=== PATIENT | male | born 1965 | race Caucasian/White ===

== ENCOUNTER 2018-03-08 12:43 | Inpatient (IN) | payer SELFPAY ==
[2018-03-08 13:22] LABS: Hemoglobin 15.4 g/dL (14.0-18.0); Mean Corpuscular HGB CONC 34.2 g/dL (32.0-36.0); Mean Corpuscular Hemoglobin 32.7 pg (27.0-31.0); Mean Corpuscular Volume 95.7 fl (80.0-94.0); Mean Platelet Volume 7.9 fL (7.4-10.4); Platelet Count 202 thou/uL (130-400); RBC Distribution Width 12.4 % (11.5-14.5); White Blood Cell (WBC) Count 20.5 thou/uL (4.8-10.8)
[2018-03-08] MEDS ORDERED: Ondansetron ODT 8 MG TAB ONE (13:38)
[2018-03-08 13:39] LABS: Band 3 % (5-11); Lymphocytes 13 % (21-51); MDiff Complete? YES; Monocytes 8 % (0-10); Neutrophil 76 % (42-75); PLT Morphology Comment Appears Adequate; RBC Morphology Normal
[2018-03-08 13:43] LABS: ALT (SGPT) 15 U/L (8-55); AST (SGOT) 20 U/L (5-34); Alkaline Phosphatase 78 U/L (40-150); Anion Gap 17 mmol/L (10-20); BUN (Urea Nitrogen) 18 mg/dL (8.4-25.7); Bilirubin, Total 1.1 mg/dL (0.2-1.2); Calc. Creatinine Clearance 0 mL/min (70-130); Calcium 9.5 mg/dL (7.8-10.44); Carbon Dioxide 24 mmol/L (22-29); Chloride 100 mmol/L (98-107); Estimated GFR-MDRD 58; Globulin 4.9 g/dL (2.4-3.5); Glucose 115 mg/dL (70-105); Lipase 22 U/L (8-78); Potassium 4.5 mmol/L (3.5-5.1); Protein, Total 8.9 g/dL (6.0-8.3); Sodium 136 mmol/L (136-145)
[2018-03-08 14:21] LABS: Bilirubin Negative (Negative); Blood, Urine Moderate (Negative); Clarity CLOUDY (Clear); Glucose, Urine (Dipstick) Negative (Negative); Leukocyte Large (Negative); Nitrite Positive (Negative); Protein, Urine (Dipstick) Trace mg/dL (Neg-Trace); Specific Gravity, Urine 1.006 (1.002-1.036); Urobilinogen 0.2 mg/dL (0.2-1.0)
[2018-03-08 14:22] LABS: Bacteria/HPF 3+ HPF (None Seen); Hyaline Casts/LPF 4-6 HYALINE CAST LPF (0-3 Hyaline); Pathc Cast-AUWi Flag 1.01 (0-2.49); RBC/HPF 0-3 HPF (0-3); Squamous Epithelial None Seen HPF (0-3); Yeast-AUWi Flag 18.7 (0-25.0)
--- NOTE | 2018-03-08 15:12 | RAD ---
FRONTAL RADIOGRPAH CHEST: DATE: 03/08/18. COMPARISON: None. HISTORY: Abdominal pain. FINDINGS: Lungs are clear. Heart and mediastinal contours appear grossly unremarkable. There is an oblong calcific structure measuring 3.1 x 0.4 cm in the right paratracheal region which c ould be related to calcified node, thyroid gland, or soft tissue density. IMPRESSION: No evidence for acute cardiopulmonary disease. A 3.1 x 1.5 cm structure of calcific density along th e superior mediastinum and the right paratracheal region, etiology uncertain. This could be definiti vely assessed with followup nonemergent CT examination. POS: [facility]
[2018-03-08] MEDS ORDERED: cefTRIAXone\\ROCEPHIN 2 GM VIAL ONE (15:49)
[2018-03-08] MEDS ORDERED: Ketorolac Tromethamine 30 MG/ML VIAL ONE (15:49)
[2018-03-08] MEDS ORDERED: Morphine 10 MG/ML VIAL ONE (15:49)
[2018-03-08] MEDS ORDERED: Glycopyrrolate 0.2 MG/ML 5 ML SYRINGE ONE (16:09)
[2018-03-08] MEDS ORDERED: Lidocaine 1% PF 5 ML VIAL ONE (16:09)
[2018-03-08] MEDS ORDERED: PROPOFOL 200 MG/20 ML VIAL ONE (16:09)
[2018-03-08] MEDS ORDERED: Labetalol 100 MG/20 ML MDV ONE (16:09)
[2018-03-08] MEDS ORDERED: Dexamethasone 20 MG/5 ML VIAL ONE (16:09)
[2018-03-08] MEDS ORDERED: Ondansetron HCl/PF 4 MG/2 ML Vial ONE (16:09)
--- NOTE | 2018-03-08 16:11 | CT ---
CT ABDOMEN AND PELVIS WITHOUT IV CONTRAST: INDICATIONS: Right flank pain. UTI. Nausea and vomiting. COMPARISON: No comparison studies available. TECHNIQUE: Multiple axial tomograms obtained through the abdomen and pelvis without IV enhancement. FINDINGS: The lung bases are clear. The liver, spleen, and pancreas are unremarkable for an unenhanced study. There is radiopaque materi al within the gastric lumen, consistent with ingested material. There is a 2 cm calculus in the right renal pelvis, which appears to be obstructing the right UPJ wit h mild right hydronephrosis. A second smaller calculus in the lower pole collecting structures of th e right kidney, measuring approximately 1 cm. A cyst in the peripheral right renal cortex measuring 2 cm. A large staghorn calculus is seen, filling the left renal pelvis and extending into the mid and lower pole collecting structures of the left kidney. A separate calcification in the peripheral mid colle cting structures of the left kidney, measuring 1 cm. The large staghorn calculus fills the left joe l pelvis and may be obstructing the left UPJ. There is dilatation of the upper pole collecting struc tures on the left. Small bowel loops are of normal caliber. The appendix appears normal. The colon is unremarkable. The urinary bladder is distended. The prostate shows small calcifications without significant enlarg ement. The aorta is calcified but of normal caliber. Nonspecific lymph nodes are seen in the periao rtic regions. Numerous small lymph nodes are present, measuring up to 1.5 cm. A pre-crural lymph no de in the upper abdomen measures up to 1.5 cm. IMPRESSION: 1. Large bilateral staghorn type calculi in the renal pelvis of both kidneys, larger on the left. T here is evidence of obstruction of both ureteropelvic junctions with dilatation of the left upper col lecting structures and mild right hydronephrosis. Other renal calculi, as described. 2. A right cortical renal cyst is apparent. 3. Mild urinary bladder distention. 4. Nonspecific retroperitoneal adenopathy. POS: [facility]
[2018-03-08] MEDS ORDERED: Iothalamate Meglumine 60% 50 ML VIAL FS ONE (16:25)
[2018-03-08] MEDS ORDERED: B & O ONE (16:26)
[2018-03-08] MEDS ORDERED: Fentanyl 100 MCG/2 ML VIAL ONE ×4 (16:33→19:19)
[2018-03-08] MEDS ORDERED: Midazolam HCl 2 mg/2 ml Vial ONE (17:04)
[2018-03-08 17:16] LABS: INR-International Normal Ratio 1.1; Prothrombin Time 14.7 SEC (12.0-14.7)
[2018-03-08 17:17] LABS: PTT 32.5 SEC (22.9-36.1)
[2018-03-08 18:03] LABS: HBCM Index 0.24 S/CO (0-0.79); HBSAg Index 0.25 S/CO (0-0.99); HIV (1/2) Antibody/Antigen Non-Reactive (NonReactive); HIV 1/2 INDEX 0.09 S/CO (<1.00); Hep A IgM AB Non-Reactive (NonReactive); Hep B Surf Ag Non-Reactive S/CO (NonReactive); Hepatitis B Core IGM Abs Non-Reactive (NonReactive)
[2018-03-08] MEDS ORDERED: diphenhydrAMINE 50 MG/ML VIAL IVP PRN (18:29)
[2018-03-08] MEDS ORDERED: HYDROcodone/Acetaminophen 10/325 mg Tablet PO PRN (18:29)
[2018-03-08] MEDS ORDERED: Oxybutynin 5 MG TAB PO PRN (18:29)
[2018-03-08] MEDS ORDERED: Morphine 4 MG/ML Carpuject IVP PRN (18:29)
[2018-03-08] MEDS ORDERED: Ondansetron HCl/PF 4 MG/2 ML Vial IVP PRN ×2 (18:29→18:35)
[2018-03-08] MEDS ORDERED: Mag-Al 1200 mg/1200 mg/30 ML UDCUP PO PRN (18:29)
--- NOTE | 2018-03-08 18:29 | RAD ---
RETROGRADE IVP 03/08/18 HISTORY: Bilateral ureteral stents. FINDINGS: Intraprocedural fluoroscopy was provided. A total of eight images are submitted for interpretation. There is evidence of retrograde opacification of the left and right intra and extrarenal collecting s ystem. Bilateral ureteral stents are identified. IMPRESSION: Fluoroscopy as above. POS: [facility]
[2018-03-08] MEDS ORDERED: Labetalol HCl 100 MG/20 ML VIAL ONE (18:33)
[2018-03-08] MEDS ORDERED: Meperidine HCl/PF 25 MG/ML VIAL SLOW IVP PRN (18:35)
[2018-03-08] MEDS ORDERED: Promethazine HCl 25 MG/ML VIAL SLOW IVP PRN (18:35)
[2018-03-08] MEDS ORDERED: Promethazine HCl 25 MG/ML VIAL IM PRN (18:35)
[2018-03-08 19:00] LABS: Hep C IgG Ab Reflex HepC Qnt (NonReactive)
[2018-03-08 19:06] LABS: Hep C Index 16.85 S/CO (0-0.79)
[2018-03-08] MEDS: Sodium Chloride 0.9% 1,000 ML IV SCH (20:14)
[2018-03-08] MEDS ORDERED: Fentanyl 100 MCG/2 ML VIAL SLOW IVP SCH (20:30)
--- NOTE | 2018-03-08 21:20 | CON ---
DATE OF CONSULTATION: 03/08/2018 REASON FOR CONSULT: Right flank pain, bilateral renal lithiasis. HISTORY OF PRESENT ILLNESS: Mr. Cesar is a 52-year-old male with history of tobacco abuse, who presented to the emergency room with 3-4 day history of right flank pain, vague lower abdominal discomfort with nausea, vomiting, subjective history of fever and chills. CT of the abdomen and pelvis demonstrated large bilateral renal calculi, right 2 cm renal stone with mild hydro, left staghorn calculus, with dilation of the left upper pole. The patient denies prior history of kidney stones, denies history of gross hematuria , history of STDs. The patient has multiple body tattoos and denies history of hepatitis, HIV. Works as a lead painter. He is single, lives in a private residence. He states that he was feeling well. However, due to worsening abdominal discomfort with nausea and emesis, presented to the emergency room. His CBC demonstrates white count of 20,000 renal function, creatinine of 1.2. His urine is grossly infected with nitrite positive urine. He is hemodynamically stable. Patient, however, has persistent discomfort despite providing about 10 mg of morphine, 8 of Zofran and 30 of Toradol. Most of his discomfort is on the right. PAST MEDICAL HISTORY: None. PAST SURGICAL HISTORY: Right toe surgery. ALLERGIES: No known drug allergies. SOCIAL HISTORY: Works as a lead painter, single, history of tobacco abuse 1 pack of cigarettes 3-4 days. Occasional alcohol, denies illicit drug use. Remote history of marijuana abuse. PHYSICAL EXAMINATION: VITAL SIGNS: Stable at 161/98, 55, 22, 99%, 98.9. GENERAL: Patient does appear to be uncomfortable due to right flank pain. HEENT: Grossly unremarkable; however, poor dentition. GENERAL: He has multiple body tattoos of his right bilateral upper extremities and back. ABDOMEN: Soft, he does have right CVA tenderness, left is grossly unremarkable. No rigidity, no rebound, per se. GENITOURINARY: Demonstrates circumcised phallus, his meatus caliber is somewhat small, approximately 10-12 Urdu. Testes are descended with no evidence of intratesticular mass. RECTAL: Digital rectal exam currently deferred as he does have discomfort from the right side. Also, blood cultures are currently being drawn. EXTREMITIES: No cyanosis, clubbing or edema. PERTINENT LABORATORY DATA AND IMAGING DATA: 1. White count of 20,000, hemoglobin 15, platelets 202, 76 segs, BUN 18, creatinine 1.2. Urinalysis demonstrates nitrite positive urine, large leukocytes, 0-3 RBCs, greater than 50 WBCs, no epithelials, 3+ bacteria. Urine culture and blood culture is pending. 2. Calcium is normal with normal parameters. Urine pH is 7.0. 3. CT of the abdomen and pelvis, 2 cm right renal pelvic stone, with mild right hydronephrosis. Second stone in the right lower pole measuring 1 cm, right peripheral renal cyst measuring 2 cm. Hounsfield unit of the stone is approximately 770. On the left side, there is a left staghorn extending from the renal pelvis involving mid to lower pole rhiannon. In largest dimension per my review, measures 6.1 x 3 cm. There is a second nidus stone, left mid pole 1 cm. Hounsfield unit is approximately 500. Per my review, CT prostate volume is approximately 30 grams, mild bladder distention. Numerous small lymph nodes measuring up to 1.5 cm in the precrural periaortic region. 4. Chest x-ray demonstrates 3.1 x 1.5 cm calcific density along the superior mediastinum of the right peritracheal region. Etiology unknown. Recommend CT. IMPRESSION AND PLAN: 1. Mr. Cesar is a 52-year-old male who presented to the emergency room with right flank pain greater than left, leukocytosis with bilateral renal calculi burden as above. Given there is grossly infected urine with leukocytosis, recommend cystoscopy, bilateral stent. patient has been fully informed regarding importance of follow up with Urology as he would require multiple urologic interventions given large stone burden including left staghorn : 2. History of tobacco abuse. 3. Abnormal chest x-ray. Recommend Pulmonology consult and evaluation. 4. Hypertension, may be related to pain issues, as he has an abnormal EKG, it would be prudent to obtain a Cardiology evaluation as this patient has never seen a primary care doctor as occult medical coronary artery disease, pulmonary pathology cannot be excluded. The patient to OR for bilateral stents. Percutaneous nephrostomy tube is indicated if unable to stent. Broad spectrum antibiotics of Rocephin and Levaquin have been provided by the emergency room. GUTIERREZ
[2018-03-08 21:23] VITALS: BMI 24.2
[2018-03-08] MEDS: Docusate 100 MG CAP PO SCH (21:37)
--- NOTE | 2018-03-08 23:53 | OP ---
DATE OF PROCEDURE: 03/08/2018 PREOPERATIVE DIAGNOSES: 1. Bilateral renal calculi: Right renal pelvic 2 cm with mild hydro, right lower pole 9-10 mm; left staghorn calculi, largest dimension measuring 6.1 cm x 3 cm in left mid pole, 1 cm stone. 2. Meatal stenosis. 3. Leukocytosis. 4. History of tobacco abuse. 5. Abnormal electrocardiogram. 6. Chest x-ray demonstrating possible mediastinal mass. POSTOPERATIVE DIAGNOSES: 1. Bilateral renal calculi: Right renal pelvic 2 cm with mild hydro, right lower pole 9-10 mm; left staghorn calculi, largest dimension measuring 6.1 cm x 3 cm in left mid pole, 1 cm stone. 2. Meatal stenosis. 3. Leukocytosis. 4. History of tobacco abuse. 5. Abnormal electrocardiogram. 6. Chest x-ray demonstrating possible mediastinal mass. PROCEDURES PERFORMED: Cystoscopy; bilateral retrograde; 6 x 24 double-J ureteral stent placement; meatal calibration and dilatation, calibrated to 12- Grenadian, dilated to 28-Grenadian; Clancy catheter placement 18-Grenadian, 10 mL. COMPLICATIONS: None apparent. INTRAOPERATIVE FINDINGS: 1. Meatal stenosis calibrated and dilatated. 2. Mild BPH component. 3. Bladder grossly unremarkable. 4. Mild bilateral hydronephrosis due to large renal calculi. INDICATIONS FOR THE PROCEDURE AND HISTORY: Mr. Cesar is a 52-year-old male with no primary care, denied past medical history, with history of tobacco abuse. He presented with 3 to 4-day history of nausea, vomiting, right greater than left flank pain. He was found to have leukocytosis of 20, 000. Urinalysis is grossly positive for UTI component. He has been provided Levaquin and Rocephin, presents for cystoscopy and bilateral stent placement due to presenting UTI with large stone burden. Risks and complications of the procedure were reviewed with him in detail including, but not limited to bleeding, pain, infection, injury to adjacent organs, urosepsis. All questions were answered to his satisfaction and he desired to proceed. DESCRIPTION OF THE PROCEDURE: After an informed consent was signed, the patient was taken to the operating room, placed in a dorsal lithotomy position with the genital area prepped and draped in the usual surgical sterile fashion. A 21-Grenadian cystoscope was utilized for the procedure. Prior to passing the scope, as he does demonstrate incidental meatal stenosis, this was calibrated to 12-Grenadian, dilated to 28-Grenadian with ease. Subsequently, a 21-Grenadian cystoscope was passed without difficulty with no evidence of urethral stricture. Prostatic urethra demonstrated bilateral coapting lateral lobes with mild BPH component. Bladder was entered demonstrating moderate debris, consistent with UTI. There was no evidence of bladder stones, diverticulum, or masses appreciated. The UO was identified in normal anatomical location. A 5- Grenadian open-ended catheter was utilized to intubate the right UO. We passed this to the level of the stone; however, there was some difficulty passing a wire to the level of the UPJ. Therefore, a retrograde pyelogram gently was performed with 1:1 diluted contrast. This opacified the collecting system with large right renal pelvic stone with mild hydro. A 0.35 sensor wire was passed to the right lower pole. A 6 x 24 double-J ureteral stent was passed without difficulty. Moderate debris was noted with efflux. We then subsequently passed a left open-ended catheter, 5-Grenadian, to the level of the renal pelvis. There was some difficulty passing at the level of UPJ as there was a stone component extending from the renal pelvis to the proximal ureter, UPJ junction. Gentle retrograde pyelogram again was performed opacifying the collecting system. A 0.35 sensor wire was placed to the left mid pole and a 6 x 24 double- J ureteral stent was passed. The left collecting system also demonstrated some degree of hydronephrosis as well. At this time, an 18-Grenadian 10 mL Clancy catheter was passed. The patient will need to be monitored for decompensation, as he presents with significant leukocytosis. He does have an abnormal EKG preop, and a possible chest mass on chest x-ray. Would advise regarding Pulmonary consultation. CT of the abdomen and pelvis incidentally does note nonspecific lymph nodes in the periaortic region, which is nonspecific. The patient does have history of tobacco abuse. He denies having past medical history; however, has never seen a primary care provider. Occult medical pathology needs to be evaluated. The patient will require medical clearance to proceed with subsequent urologic surgery, as he has a large stone burden bilaterally. Recommend broad-spectrum antibiotics until final urine culture is finalized. GUTIERREZ
--- NOTE | 2018-03-09 00:24 | HP ---
The patient currently does not have a primary care physician. CHIEF COMPLAINT: Abdominal pain, nausea, and vomiting. HISTORY OF PRESENT ILLNESS: Mr. Cesar is a pleasant 52-year-old gentleman who has no known past me dical history. He was in his usual state of health until Wednesday afternoon. He says that he had eate n some pork and basically says later on that evening, he began feeling sick and the following day on Wednesday, he felt drowsy all day and started getting abdominal pain as well as nausea and vomiting. He says he vomited multiple times and he could not even keep water down. He also was having subjecti ve fever off and on and began having again the pain on the right side. He denies any dysuria or any hematuria. He came to the emergency room for evaluation and there was found that he had multiple sto cosme in the kidneys and there were bilateral large staghorn type calculi in the renal pelvis of both k idneys. It was larger on the left. There was evidence of obstruction at both of the ureteropelvic j unction with dilatation of the left upper collecting structures and mild right hydronephrosis. As a result, Urology was consulted and the patient was taken emergently to surgery and we have been asked to help to admit the patient with regard to some of his other medical conditions. He was also found to have a 3.1 x 1.5-cm mass in the right superior mediastinum and in the right peritracheal region. He will need evaluation for this as well. REVIEW OF SYSTEMS: Constitutional: There has been subjective fever as well as chills. No night swe ats. He has had a 5-pound weight loss. He says after having this most recent illness, prior to that there was no weight loss. HEENT: No headache, no dizziness, no visual changes, no sore throat, rhi norrhea, neck pain, no adenopathy. Pulmonary: No hemoptysis, no cough, no wheezing. Cardiovascular : He denies any chest pain, no shortness of breath, no PND, no orthopnea. He says he has good exerc ise tolerance and is able to walk several flights of steps without any difficulty. Gastrointestinal: He did have some right flank pain as well as nausea and vomiting as previously mentioned, but no ch car in bowels. Genitourinary: No urinary frequency, dysuria, or hematuria. Musculoskeletal: No m uscle pains, weakness, or joint pains. Neurologic: No focal weakness, numbness, no seizures. Psych iatric: No symptoms of anxiety or depression. Skin and Integument: No skin changes. No rash. PAST MEDICAL HISTORY: No history of any previous past medical history. PAST SURGICAL HISTORY: Negative. ALLERGIES: No known drug allergies. SOCIAL HISTORY: He smokes 2-3 cigarettes daily as well as 2-3 beers a day. He used to be a heavy sm oker and smoked about 2-1/2 packs of cigarettes for at least 7 years. He is single, has one child. He is a [employer]. FAMILY HISTORY: Significant for cancer in his father, leukemia and also breast cancer. MEDICATIONS: Prior to admission included aspirin. PHYSICAL EXAMINATION: GENERAL: He is alert and oriented. He appears to be in no acute distress. VITAL SIGNS: Blood pressure was 153/90, heart rate 69, respiratory rate of 16, and he is afebrile. HEENT: Pupils are equal, round, and reactive. Extraocular muscles are intact. Sclerae are anicteri c. Throat: No erythema, no exudates. NECK: No adenopathy, no bruits. LUNGS: Clear to auscultation. There is no wheezing, no rales. CARDIOVASCULAR: He has a normal S1 and S2. No S3 or S4. No murmurs, clicks, or rubs. ABDOMEN: Soft. He has got some mild right-sided tenderness. There is no rebound or guarding. EXTREMITIES: There is no clubbing, cyanosis, no edema. NEUROLOGICALLY: The exam is grossly nonfocal. LABORATORY RESULTS: Sodium 136, potassium 4.5, chloride is 100, CO2 is 24, BUN of 18, creatinine 1.2 9, glucose is 115. White blood cell count 20.5, hemoglobin 15.4, hematocrit is 45, platelet count is 202,000. INR is 1.1. Urinalysis is positive nitrites, moderate blood, large leukocyte esterase, an d 3+ bacteria. ASSESSMENT AND PLAN: 1. Nephrolithiasis with staghorn calculus and urinary obstruction. He will be admitted to the medic al floor, started on empiric IV antibiotics for a complicated urinary tract infection secondary to th e nephrolithiasis. He has already been seen by Dr. Winston and has had surgical procedure to rel ieve the obstruction and may require more definitive surgery at a later date. 2. Pulmonary mass. The mass according to the findings on the chest x-ray in the superior mediastinu m and also in the peritracheal area. We will likely need to get a CT scan to get a better idea of wh ere the mass is located as this will determine whether he needs to be seen by Pulmonary or by thoraci c surgery if it is a mediastinal mass. 3. He has sinus bradycardia, however, he does not appear to be symptomatic from this. We will rickey liae likely monitor him on telemetry and get an echocardiogram and further recommendations will be bas ed on the patient's clinical course.
[2018-03-09] MEDS: HYDROcodone/Acetaminophen 10/325 mg Tablet PO PRN ×4 (02:55→17:33)
[2018-03-09] MEDS ORDERED: Morphine 4 MG/ML VIAL IV PRN (05:10)
[2018-03-09] MEDS: Morphine 4 MG/ML VIAL IV PRN ×3 (05:17→22:59)
[2018-03-09 05:48] LABS: #Lymphocytes 0.9 thou/uL (1.20-3.40); #Monocytes 0.8 thou/uL (0.11-0.59); #Neutrophils 11.9 thou/uL (1.40-6.50); %Eosinophils 0.2 % (0.0-10.0); %Lymphocytes 6.7 % (21.0-51.0); %Neutrophils 87.1 % (42.0-75.0); Hemoglobin 13.4 g/dL (14.0-18.0); Mean Corpuscular HGB CONC 33.4 g/dL (32.0-36.0); Mean Corpuscular Hemoglobin 32.4 pg (27.0-31.0); Mean Corpuscular Volume 96.9 fl (80.0-94.0); Platelet Count 181 thou/uL (130-400); RBC Distribution Width 12.5 % (11.5-14.5); Red Blood Cell (RBC) Count 4.15 mill/uL (4.70-6.10); White Blood Cell (WBC) Count 13.6 thou/uL (4.8-10.8)
[2018-03-09 06:04] LABS: Anion Gap 12 mmol/L (10-20); BUN (Urea Nitrogen) 18 mg/dL (8.4-25.7); Calc. Creatinine Clearance 83 mL/min (70-130); Calcium 8.1 mg/dL (7.8-10.44); Carbon Dioxide 23 mmol/L (22-29); Chloride 106 mmol/L (98-107); Estimated GFR-MDRD 79; Glucose 132 mg/dL (70-105); Potassium 4.1 mmol/L (3.5-5.1); Sodium 137 mmol/L (136-145)
[2018-03-09] MEDS: Sodium Chloride 0.9% 1,000 ML IV SCH ×3 (06:49→20:50)
[2018-03-09] MEDS: Docusate 100 MG CAP PO SCH ×2 (08:41→20:53)
[2018-03-09] MEDS: Tamsulosin HCl 0.4 MG CAP PO SCH (08:41)
--- NOTE | 2018-03-09 09:36 | PRG ---
DATE OF SERVICE: 03/09/2018 SUBJECTIVE: The patient is complaining of right lower quadrant abdominal discomfort. Denies nausea, vomiting or chills. PHYSICAL EXAMINATION: VITAL SIGNS: Stable at 97.7, heart rate 52-49, 98%, 186/96. I's and O's are 1950 of urine output, concentrated yellow. ABDOMEN: Soft. There is no gross CVA tenderness. GENITOURINARY: Clancy catheter is adequately secured. PERTINENT LABORATORY DATA: White count has improved from presenting 20,000 to 13,000, hemoglobin 13.4, platelet 181. Coagulation profile is within normal limits. Creatinine improved from 1.29-0.99. Urine culture preliminary is beta hemolytic strep. Blood culture negative thus far. Serology is hepatitis B, HIV negative; hepatitis C, reflex positive. IMPRESSION AND PLAN: A 52-year-old male who presented with flank pain, found to have a large stone burden bilaterally. CT demonstrated right 2 cm stone, right lower pole 1 cm stone, left staghorn calculus in greatest dimension measuring 6.1 cm, left mid pole 1 cm stone. The patient underwent cystoscopy, bilateral stent, meatal calibration and dilatation. 1. Chest x-ray demonstrates 3 cm mediastinal mass. 2. Screening on hepatitis panel C, positive. 2. Hypertension, bradycardia. patient has undergone bilateral stent. Recommend Levaquin until culture is finalized. He was informed regarding importance of follow up with as he has bilateral ureteral stent and very large stone burden that will require multiple surgeries ie percutaneous nephrolithotomy URS. He will need to be medically optimized, he has never seen a physician. I do anticipate some occult pathology as there is an abnormal chest x-ray, EKG and bradycardia. I appreciate hospitalist's assistance in medical optimization. CT of the chest has been ordered per Hospitalist, echocardiogram is pending. Recommend Infectious Disease consult due to hepatitis C, recently diagnosed. Case management consult advise that the patient is nonfunded and require multiple surgical interventions. GUTIERREZ
[2018-03-09] MEDS ORDERED: Iopamidol 370 76% 100 ML VIAL ONE (12:54)
--- NOTE | 2018-03-09 14:20 | CT ---
CT CHEST WITH IV CONTRAST: Date: 03/09/18 HISTORY: Abnormal chest radiograph. Mediastinal mass. COMPARISON: 03/09/18. FINDINGS: No calcification is apparent at the level of the upper mediastinum and region of concern on recent ch est radiograph. The building services supervisor view for the current exam does not show a density at the same location. There is mild scarring at the dependent portion of each lung. Calcification within the arterial struc tures. Nonspecific lymph nodes of mediastinum. Within the partially visualized upper abdomen, cirrhotic appearance of the liver, ureteral stent, and renal calcifications are partially visualized. IMPRESSION: 1. No mediastinal masses or other aggressive processes are apparent. The density on recent chest rad iograph is not reproduced and may have represented an overlying artifact. 2. Atherosclerosis. POS: [facility]
--- NOTE | 2018-03-09 14:29 | PDOC.PN ---
- Subjective Encounter Start Date: 03/09/18 Encounter Start Time: 14:26 Mr. Cesar was seen today in follow-up of Nephrolithiasis, mediastinal mass. He is complaining of severe pain in the right flank, which is not relieved with [place]. - Objective Resuscitation Status: Resuscitation Status FULL:Full Resuscitation MAR Reviewed: Yes Vital Signs & Weight: Vital Signs (12 hours) Temp Pulse Resp BP Pulse Ox 03/09/18 13:22 97.6 F 83 20 185/96 H 100 03/09/18 08:38 52 L 186/96 H 03/09/18 07:35 97.7 F 68 20 192/93 H 98 03/09/18 04:00 49 L 20 140/76 Weight Admit Weight 150 lb 3.2 oz Weight 150 lb 3.2 oz I&O: 03/08/18 03/09/18 03/10/18 06:59 06:59 06:59 Output Total 1400 Balance -1400 Result Diagrams: 03/09/18 05:03 03/09/18 05:03 Phys Exam - Physical Examination HEENT: PERRLA Respiratory: no wheezing, no rales, no rhonchi, clear to auscultation bilateral Cardiovascular: RRR, no significant murmur, no rub Gastrointestinal: soft, positive bowel sounds Musculoskeletal: no edema Dx/Plan (1) Staghorn calculus Code(s): N20.0 - CALCULUS OF KIDNEY Status: Acute (2) Bilateral nephrolithiasis Code(s): N20.0 - CALCULUS OF KIDNEY Status: Acute (3) Complicated UTI (urinary tract infection) Code(s): N39.0 - URINARY TRACT INFECTION, SITE NOT SPECIFIED Status: Acute (4) Mediastinal mass Status: Acute (5) Hepatitis C Code(s): B19.20 - UNSPECIFIED VIRAL HEPATITIS C WITHOUT HEPATIC COMA Status: Acute (6) Elevated blood-pressure reading without diagnosis of hypertension Code(s): R03.0 - ELEVATED BLOOD-PRESSURE READING, W/O DIAGNOSIS OF HTN Status : Acute - Plan * Nephrolithiasis- patient is status post Ureteral STENT placement * UTI- awaiting urine culture results, will continue Levaquin in the interim * Mediastinal Mass- await CT scan results for better characterization * Hepatitis C- work-up for treatment is underway by ID * Pain control- discussed with patient that we will try to limit IV morphine, and use as a last resort- will monitor over the next few days..
--- NOTE | 2018-03-09 15:33 | NM ---
DIURETIC RADIONUCLIDE RENOGRAM: Date: 03/09/18 HISTORY: Bilateral kidney stones with bilateral ureteral stents. RADIOPHARMACEUTICAL: 8 mCi technetium-99m MAG3 injected intravenously. DIURETIC: 34 mg IV Lasix injected 15 minutes prior to the radiopharmaceutical. FINDINGS: Correlation is made with the CT scan and retrograde pyelograms of 03/08/18. There is better flow to the right kidney compared to the left with better uptake as well. The differe ntial function measures 65% on the right and 35% on the left. Tracer excretion is seen bilaterally in to the urinary bladder. There is focal retention of contrast in the upper poles, left greater than ri ght. The renogram curves are downsloping. IMPRESSION: 1. No evidence of high grade obstruction. 2. Differential function is 65% on the right and 35% on the left. POS: [facility]
--- NOTE | 2018-03-09 19:30 | CON ---
DATE OF CONSULTATION: 03/09/2018 REASON FOR CONSULTATION: Positive hepatitis C serology. HISTORY OF PRESENT ILLNESS: A 52-year-old first admission to this hospital presents with no past med ical history and new onset of right lower quadrant abdominal pain, nausea, and vomiting. Evaluation demonstrated an obstructive nephrolithiasis with staghorn calculi in right and left side. Patient antonio d stents placed. He was found to have a positive HCV serology. Also, there was a 3.1 x 1.5 cm mass in the right superior mediastinum, right peritracheal region. Currently, he is feeling still quite a bit of pain in the right abdominal area. No headaches, visual symptoms, sore throat, odynophagia or dysphagia. No chest pain, no cough or sputum production. No joint symptoms. No neurological sympt oms. PAST MEDICAL HISTORY: Was not aware of any medical problems. PAST SURGICAL HISTORY: Negative. ALLERGIES: None. SOCIAL HISTORY: Works in ranches doing various functions, painting, carpentry and so on, still smoki ng. Drinks 2 to 3 beers a day. Used to smoke heavier. Has 1 child. Kind of lives in various areas , does not have fixed residence. Right now, he is working in a couple of ranches in the area. FAMILY HISTORY: Cancer, leukemia and breast cancer. CURRENT MEDICATIONS: Bassett, Maalox, Benadryl, Colace, levofloxacin, Zofran, oxybutynin, Flomax. PHYSICAL EXAMINATION: VITAL SIGNS: T-max 97.8, blood pressure 180/90, pulse 83, respirations 20, O2 sat 100%. SKIN: No remarkable findings. Peripheral IV access has indwelling Clancy catheter. No lymphadenopat hy. HEENT: Ocular movements are conjugate. Sclerae white. Oral cavity with only few remaining teeth wi th marked decay and gum disease. No thrush. NECK: Supple with jugular distention or carotid bruits. LUNGS: With symmetric clear breath sounds. HEART: S1, S2, regular rate. No S3 or S4. ABDOMEN: Soft and nondistended. Mild to moderate tenderness in right lower quadrant, no distention, no ascites noted. EXTREMITIES: Moves extremities equally. Pulses 1+ in dorsalis pedis. No edema. NEUROLOGIC: Cognitive function appears to be intact. Strength in upper and lower extremities are pr eserved. LABORATORY DATA: White cell count down from 20 to 13,000, hemoglobin 13.4, MCV 96, platelets 181 wit h 87% neutrophils. INR 1.1. Chemistry with glucose 115, total protein 8.9, globulin 4.9, albumin 4. 0. Urinalysis greater than 50 WBCs. Hepatitis C reflex positive. ASSESSMENT: Nephrolithiasis with bilateral obstructive, admitted with pain, mediastinal mass, positi ve hepatitis C serology. DISCUSSION: The patient needs further assessment of hepatitis C infection to see if it has spontaneo usly resolved or not with measurement of the hepatitis C virus RNA quantitation. The mediastinal mas s will continued to be evaluated. HIV serology was negative. If he turns out to have positive quant itative assay of hepatitis C in the blood, then we will be able to coordinate treatment for patient o nce he gets discharged in the outpatient setting. Through my clinic, we can obtain patient assistanc e for the treatment course. Check serum protein electrophoresis in view of the elevated total protei n.
[2018-03-09] MEDS ORDERED: Nicotine 7 MG PATCH TOP SCH (21:00)
[2018-03-10] MEDS: Morphine 4 MG/ML VIAL IV PRN (03:39)
[2018-03-10] MEDS: Sodium Chloride 0.9% 1,000 ML IV SCH ×2 (03:50→11:51)
[2018-03-10 04:18] LABS: #Eosinphils 0.1 thou/uL (0.0-0.7); #Lymphocytes 2.3 thou/uL (1.20-3.40); #Monocytes 1.2 thou/uL (0.11-0.59); #Neutrophils 7.8 thou/uL (1.40-6.50); %Basophils 0.2 % (0.0-1.0); %Eosinophils 0.5 % (0.0-10.0); %Lymphocytes 20.3 % (21.0-51.0); %Monocytes 10.8 % (0.0-10.0); %Neutrophils 68.2 % (42.0-75.0); Hemoglobin 13.2 g/dL (14.0-18.0); Mean Corpuscular HGB CONC 33.8 g/dL (32.0-36.0); Mean Corpuscular Hemoglobin 33.1 pg (27.0-31.0); Platelet Count 151 thou/uL (130-400); RBC Distribution Width 12.5 % (11.5-14.5); Red Blood Cell (RBC) Count 3.99 mill/uL (4.70-6.10); White Blood Cell (WBC) Count 11.4 thou/uL (4.8-10.8)
[2018-03-10 04:46] LABS: Cardiac Risk 2.1 (Less than 4.5)
[2018-03-10] MEDS: HYDROcodone/Acetaminophen 10/325 mg Tablet PO PRN ×2 (06:01→10:57)
[2018-03-10] MEDS ORDERED: traMADol HCl 50 MG TAB PO PRN (07:45)
[2018-03-10] MEDS: Tamsulosin HCl 0.4 MG CAP PO SCH (08:26)
[2018-03-10] MEDS: Docusate 100 MG CAP PO SCH (08:26)
--- NOTE | 2018-03-10 09:38 | PRG ---
DATE OF SERVICE: 03/10/2018 SUBJECTIVE: The patient does have right lower quadrant abdominal discomfort. Denies flank pain. Pain is controlled with hydrocodone and morphine. Denies nausea, vomiting or chills. OBJECTIVE: VITAL SIGNS: Stable. He is afebrile, however, remains hypertensive 178/87. I' s and O's are 3840 in, 4450 out of clear dilute urine. ABDOMEN: Soft, subjective discomfort is in the right lower quadrant; however, there is no rigidity, no rebound. No significant tenderness on physical examination. No CVA tenderness. GENITOURINARY: Vivas catheter secured demonstrating clear dilute urine. PERTINENT LABORATORY DATA: White count has decreased since admission from 20, 000 to 13,000, this morning it is 11,000 with hemoglobin 13, platelet 151. Blood culture is negative. Urine culture demonstrating beta strep. IMAGING: CT correlation of the chest mass negative for mediastinal mass. Echocardiogram is in chart. Lasix renal scan reviewed demonstrating no evidence of high-grade obstruction. I did discuss with the patient regarding differential function of diminished function of the left kidney at 35%, right 65 %. IMPRESSION AND PLAN: Mr. Cesar is a 52-year-old male admitted with history of right abdominal discomfort, found to have bilateral large stone burden including left staghorn, a large right renal calculi with hydronephrosis status post bilateral stent. As the patient is improving with stent, I would recommend Levaquin versus ciprofloxacin as an outpatient for minimum of 2 weeks. 1. Hepatitis C, newly diagnosed, appreciate Infectious Disease consult. 2. Hypertension. 3. History of tobacco abuse. I discussed with patient in lengthy detail, as I have been informed by hospital administration that we are unable to proceed with urologic surgical intervention due to patient being not a local [facility] resident. I did inform the patient that case management has been consulted to coordinate followup appointment with in [facility]. The patient has been fully informed regarding importance of follow up with Urology, as he already has diminished function of the left kidney. Discussed with patient regarding weaning pain medication. AIRAM vivas. Would recommend weaning morphine, may continue oral pain medication. Tramadol and Toradol has been added to his regimen. The patient states that he is anticipated to be back at home tomorrow and has private residence. Pending coordination of follow up subspecialist in [place], I do anticipate patient will be cleared to be discharged tomorrow. addendum: Patient ready for discharge as he is medically stable. Patient is no evidence of fever, leukocytosis is resolved voiding without significant issues. Patient has been provided a urology follow-up appointment in [place] with Dr. Stoner 03/16/18 @9;30am. Patient also has been informed that as he is a resident of [facility], alternative option if he needs emergent treatment may present to [facility] emergency room. I did speak with attending urologist at [facility] , DR Arcos who recommended if there is emergent issue this would be an option for him as an alternative. GUTIERREZ
[2018-03-10] MEDS ORDERED: Ketorolac Tromethamine 30 MG/ML VIAL IVP SCH (12:00)
--- NOTE | 2018-03-10 12:51 | DIS ---
DATE OF ADMISSION: 03/08/2018 DATE OF DISCHARGE: 03/10/2018 The patient does not have a primary care physician. DISCHARGE DISPOSITION: Home. PRIMARY DISCHARGE DIAGNOSES: 1. Nephrolithiasis, bilateral, with urinary obstruction. 2. Complicated urinary tract infection secondary to nephrolithiasis. 3. Hypertension. 4. Tobacco abuse. 5. Hepatitis C. DISCHARGE MEDICATIONS: Include ciprofloxacin 500 mg 1 p.o. twice a day for 2 weeks as well as amlodi pine 5 mg daily, Tylenol #4 one tablet q.4 hours as needed for pain. PROCEDURES DONE DURING ADMISSION: The patient had a retrograde pyelogram showing evidence of opacifi cation of the right and left intra- and extrarenal collecting systems. Bilateral ureteral stents wer e identified. The patient had a CT scan of the abdomen and pelvis. It showed a large bilateral stag horn-type calculi in the renal pelvis of both kidneys, larger on the left. There was some evidence o f obstruction of both ureteropelvic junctions with dilatation of the left upper collecting structures and mild right hydronephrosis. There were other renal stones described. There was mild urinary lena dder distention. There was nonspecific retroperitoneal adenopathy. The patient had a cystoscopy wit h bilateral retrograde a double-J ureteral stent placement. The patient had a renal scan showing no evidence of any high-grade obstruction and differential function of 65% on the right and 35% on the l eft. The patient had an echocardiogram, in which the ejection fraction was estimated at 55%-60%. Th ere was normal PA pressure and structurally normal valves. The patient had a CT scan of the chest, w [facility] there was no mediastinal masses or aggressive processes were apparent. The density that was see n on the chest x-ray was not reproduced and may have represented an overlying artifact. HOSPITAL COURSE: Mr. Cesar is a pleasant 52-year-old gentleman, who was admitted to the hospital w ith complaints of abdominal pain and nausea and vomiting. He originally thought he may have food poi soning, but it was found that he had a urinary tract infection as well as bilateral renal stones. He was seen by Urology due to the size of the stones and concern for urinary obstruction. He underwent double-J tube stent placement to both ureters and the plan was to have stepwise surgical procedures for removal of the stones. He was also treated for the urinary tract infection, which was a result o f the nephrolithiasis. He was incidentally found to have bradycardia during his hospital stay. This appears to be asymptomatic. His heart rate remained stable. Echocardiogram was essentially unremar kable. There was some concern for possible superior mediastinal mass on chest x-ray; however, a CT s can did not demonstrate this finding and this was thought to be possibly due to artifact on the x-ray . The patient was counseled on the need to discontinue smoking. He was also found to have hepatitis C. He was seen by Infectious Disease specialist. The viral loads were obtained as well as HCV jadon type. These tests were pending at the time of discharge. The patient was instructed to follow up wi th these results as an outpatient.
[2018-03-10] MEDS ORDERED: Furosemide 40 MG/4 ML VIAL ONE (15:01)
[2018-03-10 15:26] VITALS: BP 179/93; TEMP 97.8
[2018-03-10] MEDS ORDERED: Amlodipine 5 MG TAB PO SCH (18:00)
[2018-03-11 13:19] LABS: HCV log10 3.673 (.); Hep C PCR-Quant 4710 IU/mL (.)
== END 2018-03-10 14:09 | disposition home or self-care (01) | DRG 694 ==
LOC: ERS 12:43 → SDC 16:16 → 2NO 19:57
PROVIDERS: ADMIT Internal Medicine; ATTEND Internal Medicine
PROC: 0T788DZ Dilation of Bilateral Ureters with Intraluminal Device, Via Natural or Artificial Opening Endoscopic (ICD-10-PCS; principal; 2018-03-08)
PROC: BT141ZZ Fluoroscopy of Kidneys, Ureters and Bladder using Low Osmolar Contrast (ICD-10-PCS; 2018-03-08)
DX: N13.2 Hydronephrosis with renal and ureteral calculous obstruction (principal); N13.8 Other obstructive and reflux uropathy; R91.8 Other nonspecific abnormal finding of lung field; N39.0 Urinary tract infection, site not specified; R00.1 Bradycardia, unspecified; N35.9 Urethral stricture, unspecified; N40.1 Benign prostatic hyperplasia with lower urinary tract symptoms; B19.20 Unspecified viral hepatitis C without hepatic coma; I10 Essential (primary) hypertension; Z87.891 Personal history of nicotine dependence
CPT/HCPCS: 36415; 71045; 71260; 74176; 74420; 78708; 80048; 80053; 80061; 80074; 81003; 81015; 83690; 84165; 85025; 85610; 85730; 87040; 87077; 87086; 87389; 87522; 87902; 93005; 93306; 96361; 96374; 96375; 96376; 99406; A4216; A4641; A9562; C1758; C1769; J0696; J1100; J1885; J1940; J1956; J2001; J2250; J2270; J2405; J2704; J3010; Q9961